=== PATIENT | male | born 1995 | race Caucasian/White ===

== ENCOUNTER 2017-07-07 21:43 | Emergency (ER) | payer OTHER ==
[2017-07-07] MEDS ORDERED: oxyCODONE/Acetamin 5/325 MG* TAB PO ONE (22:12)
--- NOTE | 2017-07-07 22:57 | ED ---
Upper Extremity Pain - HPI Summary HPI Summary: 21-year-old male presents with left hand injury today. He states he was playing basketball and fell backwards and landed on his left hand. He states he felt a crunch. He has previously fractured the thumb twice. He denies any numbness or tingling. The area is swollen. He denies any wrist pain. He is right-handed. He is a student. He denies any other injury. He denies any head injury. He is limited range of motion index middle and ring finger. - History of Current Complaint Chief Complaint: EDExtremityUpper Stated Complaint: LT HAND INJURY Time Seen by Provider: 07/07/17 21:54 - Allergies/Home Medications Allergies/Adverse Reactions: Allergies Allergy/AdvReac Type Severity Reaction Status Date / Time No Known Allergies Allergy Verified 07/07/17 21:50 PMH/Surg Hx/FS Hx/Imm Hx Endocrine/Hematology History: Denies: Hx Anticoagulant Therapy Cardiovascular History: Denies: Hx Myocardial Infarction Infectious Disease History: No Infectious Disease History: Denies: Traveled Outside the [place] in Last 30 Days - Family History Known Family History: Negative: Diabetes - Social History Alcohol Use: Weekly Substance Use Type: Reports: None Smoking Status (MU): Never Smoked Tobacco Review of Systems Negative: Fever Negative: Chest Pain Negative: Shortness Of Breath Positive: Myalgia - left hand All Other Systems Reviewed And Are Negative: Yes Physical Exam Triage Information Reviewed: Yes Vital Signs On Initial Exam: Initial Vitals Temp Pulse Resp BP Pulse Ox 97.8 F 91 16 133/88 99 07/07/17 21:49 07/07/17 21:49 07/07/17 21:49 07/07/17 21:49 07/07/17 21:49 Vital Signs Reviewed: Yes Appearance: Positive: Well-Appearing Skin: Positive: Warm, Dry Head/Face: Positive: Normal Head/Face Inspection Eyes: Positive: Normal, Conjunctiva Clear Respiratory/Lung Sounds: Positive: Clear to Auscultation, Breath Sounds Present Cardiovascular: Positive: Normal, RRR Musculoskeletal: Positive: Limited @ - index, Middle ring finger, Edema Right - Palmar left, Other - Tenderness over index middle ring metacarpals of left hand , capillary refill less than 2 seconds, sensation grossly intact, good pulses, negative snuffbox tenderness Neurological: Positive: Normal Psychiatric: Positive: Normal Procedures - Splinting Location: left hand Hand-Made Type: orthoglass Splint: volar Pre-Proc Neuro Vasc Exam: normal Post-Proc Neuro Vasc Exam: normal Diagnostics - Vital Signs Vital Signs Temp Pulse Resp BP Pulse Ox 07/07/17 22:25 16 07/07/17 21:49 97.8 F 91 16 133/88 99 - Laboratory Lab Statement: Any lab studies that have been ordered have been reviewed, and results considered in the medical decision making process. - Radiology hand Xray Interpretation: Positive (See Comments) - Index, middle, Ring finger metacarpal fracture Radiology Interpretation Completed By: ED Physician Course/Dx - Course Course Of Treatment: 21-year-old male presents with left hand injury today. He states he was playing basketball and fell backwards and landed on his left hand. He states he felt a crunch. He has previously fractured the thumb twice. He denies any numbness or tingling. The area is swollen. He denies any wrist pain. He is right-handed. He is a student. He denies any other injury. He denies any head injury. He is limited range of motion index middle and ring finger. On exam edema over the palmar aspect of hand. Neurovascularly intact. Tenderness over index middle and ring finger metacarpal. No snuffbox tenderness. X-ray shows metacarpal fracture index middle and ring finger. Placed in a volvar splint and will have follow-up with orthopedic. Patient told to elevate and ice. Patient states the insurance company will not accept [facility] so we will give referral to Dr. Linda. Patient understands agrees plan. - Diagnoses Differential Diagnosis/HQI/PQRI: Positive: Fracture (Closed), Strain, Sprain Provider Diagnoses: Metacarpal bone fracture Discharge - Sign-Out/Discharge Documenting (check all that apply): Discharge - Discharge Plan Condition: Good Disposition: HOME Prescriptions: oxyCODONE/Acetamin 5/325 MG* [Percocet 5/325 TAB*] 1 tab PO Q6H PRN #16 tab MDD 4 PRN Reason: Pain Patient Education Materials: Hand Fracture (ED) Referrals: Dawson Andre MD [Medical Doctor] - Iván Robledo MD [Medical Doctor] - [facility] - LisaMather [Primary Care Provider] - Additional Instructions: Keep splint on area and keep dry Call ortho office tomorrow to set up appointment for follow up Use ibuprofen for pain every 6 hours and use narcotic for breakthrough pain Ice, elevate Return to ED if develop any new or worsening symptoms - Billing Disposition and Condition Condition: GOOD Disposition: HOME
[2017-07-07 23:19] VITALS: BP 125/76
--- NOTE | 2017-07-08 07:17 | RAD ---
INDICATION: Left hand injury. TECHNIQUE: 3 views of the left hand were obtained. FINDINGS: There are oblique fractures of the proximal to mid diaphyses of the second through fourth metacarpal bones. The fracture fragments are slightly distracted with the distal fragment is displaced one cortical diameter medial relative the proximal fragments. The distal fragment also demonstrates slight medial and anterior angulation relative the proximal fragments. Joint spaces appear maintained. IMPRESSION: OBLIQUE DISPLACED SLIGHTLY ANGULATED FRACTURES OF THE SECOND, THIRD AND FOURTH METACARPALS.
== END 2017-07-07 23:26 | disposition home or self-care (01) ==
LOC: ED 21:43
DX: S62.309A Unspecified fracture of unspecified metacarpal bone, initial encounter for closed fracture (principal); W19.XXXA Unspecified fall, initial encounter; Y93.67 Activity, basketball; Y92.9 Unspecified place or not applicable
CPT/HCPCS: 99282; A9270-GY

== ENCOUNTER 2018-06-09 22:46 | Emergency (ER) | payer OTHER ==
[2018-06-09] MEDS ORDERED: PROCHLORPERAZINE INJ 5 MG/ML 2 ML VIAL IV ONE (22:58)
[2018-06-09] MEDS: NS 0.9% 1000 ML** 2,000 ML IV ONE ×2 (23:18→23:41)
--- NOTE | 2018-06-10 | ED ---
GI/ HPI - HPI Summary HPI Summary: A 22 y/o male presents to [facility] with a chief complaint of abdominal pain since 20:00 06/09/18. The patient reports that he was at a hockey game when his abdominal pain, N/V/D started. At triage the patient rated his pain as an 8/10 in severity. 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 Nothing alleviates his pain. - History of Current Complaint Chief Complaint: EDNauseaVomitDiarrh Time Seen by Provider: 06/09/18 22:57 Stated Complaint: VOMITING/DIARRHEA/ABD PAIN Hx Obtained From: Patient Onset/Duration: Started Hours Ago, Still Present Timing: Constant, Lasting Hours Severity: Severe Current Severity: Severe Pain Intensity: 8 - out of 10 Location of Pain: Diffuse Pain Characteristics: Unable to describe Associated Signs and Symptoms: Positive: Nausea, Vomiting, Diarrhea Aggravating Factor(s): Nothing Alleviating Factor(s): Nothing - Allergy/Home Medications Allergies/Adverse Reactions: Allergies Allergy/AdvReac Type Severity Reaction Status Date / Time No Known Allergies Allergy Verified 07/07/17 21:50 PMH/Surg Hx/FS Hx/Imm Hx Endocrine/Hematology History: Denies: Hx Diabetes Cardiovascular History: Denies: Hx Hypertension - Surgical History Surgery Procedure, Year, and Place: [place] teeth removal Apr 2018 - Immunization History Immunizations Up to Date: Yes Infectious Disease History: No Infectious Disease History: Denies: Traveled Outside the [place] in Last 30 Days - Family History Known Family History: Negative: Hypertension, Diabetes - Social History Alcohol Use: Weekly Alcohol Amount: 3x/week Substance Use Type: Reports: None Smoking Status (MU): Never Smoked Tobacco Review of Systems Negative: Fever Positive: Abdominal Pain, Vomiting, Diarrhea, Nausea All Other Systems Reviewed And Are Negative: Yes Physical Exam - Summary Physical Exam Summary: Appearance: Well-appearing, Well-nourished, lying in bed comfortably Skin: Warm, dry, no obvious rash Eyes: sclera anicteric, no conjunctival pallor ENT: mucous membranes moist, pharynx appears normal Neck: Supple, nontender Respiratory: Clear to auscultation, no signs of respiratory distress Cardiovascular: Normal S1, S2. No murmurs. Normal distal pulses in tibial and radial bilaterally. Abdomen: Soft, nontender, normal active bowel sounds present Musculoskeletal: Normal, Strength/ROM Intact Neurological: A&Ox3, awake and alert, mentation is normal, speech is fluent and appropriate Psychiatric: affect is normal, does not appear anxious or depressed Triage Information Reviewed: Yes Vital Signs On Initial Exam: Initial Vitals Temp Pulse Resp BP Pulse Ox 98 F 101 18 119/84 96 06/09/18 22:48 06/09/18 22:48 06/09/18 22:48 06/09/18 22:48 06/09/18 22:48 Vital Signs Reviewed: Yes Diagnostics - Vital Signs Vital Signs Temp Pulse Resp BP Pulse Ox 06/09/18 23:02 86 100 06/09/18 23:00 82 115/73 100 06/09/18 22:48 98 F 101 18 119/84 96 - Laboratory Lab Statement: Any lab studies that have been ordered have been reviewed, and results considered in the medical decision making process. GIGU Course/Dx - Course Course Of Treatment: A 22 y/o male presents to [facility] with a chief complaint of abdominal pain since 20:00 06/09/18. The patient reports that he was at a hockey game when his abdominal pain, N/V/D started. At triage the patient rated his pain as an 8/10 in severity. 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 Nothing alleviates his pain. The physical exam was unremarkable. In the ED course the patient was given 10mg Compazine IV. Upon re-eval the patient is feeling better. He will be discharged and is agreeable with this plan. - Diagnoses Provider Diagnoses: Gastroenteritis Discharge - Sign-Out/Discharge Documenting (check all that apply): Patient Departure - DC Patient Received Moderate/Deep Sedation with Procedure: No - Discharge Plan Condition: Improved Disposition: HOME Prescriptions: Ondansetron ODT TAB* [Zofran 4 MG Odt TAB*] 8 mg PO Q6H PRN #10 tab.odt PRN Reason: Nausea Patient Education Materials: Gastroenteritis (ED) Referrals: [facility] - Wilner FITCH [Primary Care Provider] - If Needed - Billing Disposition and Condition Condition: IMPROVED Disposition: Home - Attestation Statements Document Initiated by Scribe: Yes Documenting Scribe: Dash Desouza Provider For Whom Scribe is Documenting (Include Credential): Pradip Lane MD Scribe Attestation: Dash Baez, scribed for Pradip Lane MD on 06/12/18 at 1550. Scribe Documentation Reviewed: Yes Provider Attestation: The documentation as recorded by the scribe, Dash Desouza accurately reflects the service I personally performed and the decisions made by me, Pradip Lane MD Status of Scribandre Document: Viewed
[2018-06-10 00:41] VITALS: BP 130/71
== END 2018-06-10 00:51 | disposition home or self-care (01) ==
LOC: ED 22:46
DX: K52.9 Noninfective gastroenteritis and colitis, unspecified (principal)
CPT/HCPCS: 96374; 99283; J0780